=== PATIENT | male | born 1945 | race Caucasian/White ===

== ENCOUNTER → 2018-10-01 | Outpatient (CLI) | payer BC | LOC: COL.LAB 13:15 | DX: Z01.812 Encounter for preprocedural laboratory examination (principal) ==

== ENCOUNTER 2018-10-04 11:02 | Inpatient (IN) | payer BC, MEDICARE ==
[~2018-10-04] VITALS: Ht 177.8 cm; Wt 104.0 kg
[2018-10-27] VITALS (10 sets, daily range): BP systolic 107–164; BP diastolic 53–72; PULSE 72–102; TEMP 97.7–98.6
[2018-10-27] MEDS ORDERED: TOPROL XL 25MG25 MG PO (05:36)
[2018-10-27] MEDS ORDERED: COZAAR100 MG PO (05:37)
[2018-10-27] MEDS ORDERED: NORVASC 10MG10 MG PO (05:37)
[2018-10-28 00:33] VITALS: BP 126/72; PULSE 74; TEMP 98.3
[2018-10-28 05:19] VITALS: BP 128/68; PULSE 96; TEMP 98.4
[2018-10-28 06:00] LABS: HEMOGLOBIN 12.1 g/dl (13.5-18.0)
[2018-10-28 06:03] LABS: HEMATOCRIT 34.3 % (42.0-52.0)
[2018-10-28 08:00] VITALS: BP 121/61; BP 131/57; PULSE 70; PULSE 92; TEMP 98.6; TEMP 99.5
[2018-10-28 13:17] VITALS: BP 139/76; PULSE 90; TEMP 97.7
[2018-10-28] MEDS ORDERED: ASPI325T6 PO (16:48)
[2018-10-28] MEDS ORDERED: SENOKOT S 50 MG1 TAB PO (16:49)
[2018-10-28] MEDS ORDERED: NORCO 325 MG-7.1 TAB PO (16:49)
== END 2018-10-28 18:50 | disposition home or self-care (01) | DRG 470 ==
LOC: JCC 10-27 05:09
PROVIDERS: Orthopaedic Surgery
PROC: 0SR90JA Replacement of Right Hip Joint with Synthetic Substitute, Uncemented, Open Approach (ICD-10-PCS; principal; 2018-10-27 07:30)
DX: M16.11 Unilateral primary osteoarthritis, right hip (principal); I10 Essential (primary) hypertension; Z87.891 Personal history of nicotine dependence
CPT/HCPCS: A4314; A9284; C1713; C1776; J0690; J2250; J2704; J3010; J7030; J7120